=== PATIENT | female | born 1955 | race Hispanic/Latino ===

== ENCOUNTER 2018-08-24 22:22 | Emergency (ER) | payer SELFPAY ==
--- OUTSIDE RECORDS SUMMARY | 2018-08-24 22:25 | XMS REPORT ---
:1955 Author Organization [facility] Address [address] [place] [address] Dr. Elliott [address] [place] [id number] Care Team Providers Name Role Phone Unavailable Unavailable Unavailable Problems This patient has no known problems. Allergies, Adverse Reactions, Alerts This patient has no known allergies or adverse reactions. Medications This patient has no known medications.
[2018-08-25] LABS: Absolute Lymphocytes (CBC) 3.6 K/uL (0.7-4.9); Absolute Monocytes 0.9 K/uL (0.1-1.3); Absolute Neutrophil 4.3 K/uL (1.8-8.0); Basophils % 1.2 % (0-1.3); Eosinophils % 4.6 % (0-4.4); Hematocrit 37.4 % (36.0-45.0); Lymphocytes % 37.9 % (15.3-44.8); MPV 8.3 fL (7.6-11.3); Monocytes % 10.1 % (3.3-12.3); RBC Red Blood Cell Count 4.34 M/uL (3.86-4.86)
[2018-08-25] MEDS ORDERED: NA CHLORIDE 0.9% 1,000 ML ONE
[2018-08-25 00:17] LABS: ALT/SGPT 32 U/L (12-78); AST/SGOT 20 U/L (15-37); Albumin 3.2 g/dL (3.4-5.0); Alkaline Phosphatase 70 U/L (45-117); BUN Blood Urea Nitrogen 18 mg/dL (7-18); Bicarbonate 25 mmol/L (21-32); Bilirubin Direct < 0.1 mg/dL (0-0.2); Bilirubin Total 0.3 mg/dL (0.2-1.0); Glucose Level 96 mg/dL (74-106); Lipase 274 U/L (73-393); Potassium 4.1 mmol/L (3.5-5.1); Protein, Total 7.6 g/dL (6.4-8.2); Sodium Level 140 mmol/L (136-145)
--- NOTE | 2018-08-25 01:44 | EDPHYS ---
Physician Documentation [facility] Name: Ivory Jordan Age: 62 yrs Sex: Female : 1955 Arrival Date: 08/24/2018 Time: 22:31 Bed 7 Private MD: ED Physician Vega Colmenares HPI: 08/25 01:41 This 62 yrs old Female presents to ER via Ambulatory with complaints of kb Abdominal Pain. 01:41 The patient presents with abdominal pain in the left upper quadrant. The patient has kb not experienced similar symptoms in the past. The patient has not recently seen a physician. 01:41 Onset: The symptoms/episode began/occurred 5 day(s) ago. The symptoms do not radiate. kb Associated signs and symptoms: Pertinent positives: constipation. The symptoms are described as constant. Modifying factors: The symptoms are alleviated by nothing, the symptoms are aggravated by nothing. Severity of pain: At its worst the pain was mild moderate in the emergency department the pain is unchanged. Historical: - Allergies: 08/24 23:04 No Known Allergies; tl2 - Home Meds: 23:04 Nexium 40 mg Oral cpDR 1 cap once daily [Active]; tl2 - PMHx: 23:04 Kidney stones; Diverticulitis; tl2 - PSHx: 23:04 Cholecystectomy; tl2 - Immunization history:: Adult Immunizations up to date. - Social history:: Smoking status: Patient/guardian denies using tobacco. - Ebola Screening: : No symptoms or risks identified at this time. ROS: 08/25 01:40 Constitutional: Negative for fever, chills, and weight loss, Neck: Negative for injury, kb pain, and swelling, Cardiovascular: Negative for chest pain, palpitations, and edema, Respiratory: Negative for shortness of breath, cough, wheezing, and pleuritic chest pain, Back: Negative for injury and pain, MS/Extremity: Negative for injury and deformity, Skin: Negative for injury, rash, and discoloration, Neuro: Negative for headache, weakness, numbness, tingling, and seizure. Abdomen/GI: Positive for abdominal pain, nausea and vomiting, constipation. Exam: 01:40 Constitutional: This is a well developed, well nourished patient who is awake, alert, kb and in no acute distress. Head/Face: Normocephalic, atraumatic. Neck: Trachea midline, no thyromegaly or masses palpated, and no cervical lymphadenopathy. Supple, full range of motion without nuchal rigidity, or vertebral point tenderness. No Meningismus. Chest/axilla: Normal chest wall appearance and motion. Nontender with no deformity. No lesions are appreciated. Cardiovascular: Regular rate and rhythm with a normal S1 and S2. No gallops, murmurs, or rubs. Normal PMI, no JVD. No pulse deficits. Respiratory: Lungs have equal breath sounds bilaterally, clear to auscultation and percussion. No rales, rhonchi or wheezes noted. No increased work of breathing, no retractions or nasal flaring. Skin: Warm, dry with normal turgor. Normal color with no rashes, no lesions, and no evidence of cellulitis. MS/ Extremity: Pulses equal, no cyanosis. Neurovascular intact. Full, normal range of motion. Neuro: Awake and alert, GCS 15, oriented to person, place, time, and situation. Cranial nerves II-XII grossly intact. Motor strength 5/5 in all extremities. Sensory grossly intact. Cerebellar exam normal. Normal gait. 01:40 Abdomen/GI: Inspection: abdomen appears normal, Bowel sounds: normal, in all quadrants, Palpation: soft, in all quadrants, moderate abdominal tenderness, in the left upper quadrant. Vital Signs: 08/24 23:04 BP 139 / 92; Pulse 87; Resp 18; Temp 98.1(O); Pulse Ox 95% on R/A; Weight 77.11 kg; tl2 Height 5 ft. 3 in. (160.02 cm); Pain 6/10; 08/25 00:21 BP 116 / 63; Pulse 50; Resp 18; Pulse Ox 98% on R/A; tl2 02:03 BP 140 / 74; Pulse 64; Resp 18; Pulse Ox 98% ; tl2 08/24 23:04 Body Mass Index 30.11 (77.11 kg, 160.02 cm) tl2 MDM: 08/24 23:16 Patient medically screened. kb 08/25 01:40 Data reviewed: vital signs, nurses notes. Data interpreted: Pulse oximetry: on room air kb is 98 %. Interpretation: normal. 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 08/24 23:30 Order name: Basic Metabolic Panel kb 08/24 23:30 Order name: CBC with Diff; Complete Time: 00:03 kb 08/24 23:30 Order name: Hepatic Function; Complete Time: 00:21 kb 08/24 23:30 Order name: Lipase; Complete Time: 00:21 kb 08/24 23:30 Order name: Basic Metabolic Panel; Complete Time: 00:21 EDMS 08/25 02:14 Order name: Urine Dipstick--Ancillary (enter results) mw2 08/24 23:30 Order name: IV Saline Lock; Complete Time: 23:38 kb 08/24 23:30 Order name: Labs collected and sent; Complete Time: 23:38 kb 08/24 23:30 Order name: CT Abd/Pelvis - W/Contrast kb Administered Medications: 08/24 23:49 Drug: NS 0.9% 1000 ml Route: IV; Rate: 1000 ml; Site: right antecubital; tl1 08/25 01:45 Follow up: IV Status: Completed infusion; IV Intake: 1000ml tl1 02:02 Drug: Flagyl 500 mg Route: PO; tl2 02:09 Follow up: Response: No adverse reaction; No change in condition; Medication tl1 administered at discharge. 02:02 Drug: KeFLEX 500 mg Route: PO; tl2 02:09 Follow up: Response: No adverse reaction; No change in condition; Medication tl1 administered at discharge. 02:20 Drug: [place] 5 mg-325 mg 1 tabs Route: PO; tl1 02:20 Follow up: Response: No adverse reaction; No change in condition; Medication tl1 administered at discharge. Disposition: 05:58 Co-signature as Attending Physician, Vega Colmenares MD. Disposition: 08/25/18 01:42 Discharged to Home. Impression: Diverticulitis of intestine, part unspecified, without perforation or abscess without bleeding. - Condition is Stable. - Discharge Instructions: Diverticulitis, [id number]. - Prescriptions for Flagyl 500 mg Oral Tablet - take 1 tablet by ORAL route every 8 hours for 10 days; 30 tablet. Keflex 500 mg Oral Capsule - take 1 capsule by ORAL route every 8 hours for 10 days; 30 capsule. - Medication Reconciliation Form, Thank You Letter, Antibiotic Education, Prescription Opioid Use form. - Follow up: Emergency Department; When: As needed; Reason: Worsening of condition. Follow up: Private Physician; When: 2 - 3 days; Reason: Recheck today's complaints, Continuance of care, Re-evaluation by your physician. Signatures: Dispatcher [employer] EDOR Marisol Andersen, RIVER-C WINDOWS SYSTEMS ENGINEER-Janice Hanley, RN RN tl1 Anna De La Cruz RN RN tl2 Vega Colmenares MD MD gs Corrections: (The following items were deleted from the chart) 02:20 01:42 08/25/2018 01:42 Discharged to Home. Impression: Diverticulitis of intestine, tl1 part unspecified, without perforation or abscess without bleeding. Condition is Stable. Forms are Medication Reconciliation Form, Thank You Letter, Antibiotic Education, Prescription Opioid Use. Follow up: Emergency Department; When: As needed; Reason: Worsening of condition. Follow up: Private Physician; When: 2 - 3 days; Reason: Recheck today's complaints, Continuance of care, Re-evaluation by your physician. kb
--- NOTE | 2018-08-25 01:44 | ER ---
Nurse's Notes [facility] Name: Ivory Jordan Age: 62 yrs Sex: Female : 1955 Arrival Date: 08/24/2018 Time: 22:31 Bed 7 Private MD: Diagnosis: Diverticulitis of intestine, part unspecified, without perforation or abscess without bleeding Presentation: 08/24 23:02 Presenting complaint: Patient states: left side abdominal pain x 5 days, feels bloated tl2 and has been constipated for 2 days. Denies vomiting. Reports being diagnosed with diverticulitis in 2013 and this pain feels similar. Transition of care: patient was not received from another setting of care. Onset of symptoms was August 19, 2018. Risk Assessment: Do you want to hurt yourself or someone else? Patient reports no desire to harm self or others. Initial Sepsis Screen: Does the patient meet any 2 criteria? No. Patient's initial sepsis screen is negative. Does the patient have a suspected source of infection? No. Patient's initial sepsis screen is negative. Care prior to arrival: None. 23:02 Method Of Arrival: Ambulatory tl2 23:02 Acuity: PILAR 3 tl2 Triage Assessment: 23:04 General: Appears in no apparent distress. uncomfortable, Behavior is calm, cooperative, tl2 appropriate for age. Pain: Complains of pain in left upper quadrant and left lower quadrant Quality of pain is described as pressure. Neuro: Level of Consciousness is awake, alert, obeys commands, Oriented to person, place, time, situation. Cardiovascular: Denies chest pain. Respiratory: Airway is patent Respiratory effort is even, unlabored, Respiratory pattern is regular, symmetrical. GI: Abdomen is round distended, Abd is soft Abdomen is tender to palpation in left upper quadrant and left lower quadrant Reports lower abdominal pain, upper abdominal pain, bloating, constipation. : No signs and/or symptoms were reported regarding the genitourinary system. Derm: Skin is pink, warm \T\ dry. Historical: - Allergies: 23:04 No Known Allergies; tl2 - Home Meds: 23:04 Nexium 40 mg Oral cpDR 1 cap once daily [Active]; tl2 - PMHx: 23:04 Kidney stones; Diverticulitis; tl2 - PSHx: 23:04 Cholecystectomy; tl2 - Immunization history:: Adult Immunizations up to date. - Social history:: Smoking status: Patient/guardian denies using tobacco. - Ebola Screening: : No symptoms or risks identified at this time. Screenin:07 Abuse screen: Denies threats or abuse. Nutritional screening: No deficits noted. tl2 Tuberculosis screening: No symptoms or risk factors identified. Fall Risk None identified. Assessment: 23:07 General: see triage assessment. tl2 Vital Signs: 23:04 BP 139 / 92; Pulse 87; Resp 18; Temp 98.1(O); Pulse Ox 95% on R/A; Weight 77.11 kg; tl2 Height 5 ft. 3 in. (160.02 cm); Pain 6/10; 08/25 00:21 BP 116 / 63; Pulse 50; Resp 18; Pulse Ox 98% on R/A; tl2 02:03 BP 140 / 74; Pulse 64; Resp 18; Pulse Ox 98% ; tl2 08/24 23:04 Body Mass Index 30.11 (77.11 kg, 160.02 cm) tl2 ED Course: 08/24 22:31 Patient arrived in ED. es 23:03 Triage completed. tl2 23:04 Arm band placed on right wrist. tl2 23:07 Patient has correct armband on for positive identification. Placed in gown. Bed in low tl2 position. Call light in reach. Side rails up X 1. 23:16 Marisol Andersen [facility]-C [facility]. kb 23:16 Vega Colmenares MD is Attending Physician. kb 23:35 Inserted saline lock: 22 gauge in right antecubital area, using aseptic technique. tl2 Blood collected. 23:38 Anna De La Cruz, DUSTY is Primary Nurse. tl2 08/25 01:00 CT Abd/Pelvis - W/Contrast In Process Unspecified. EDMS 01:04 CT completed. Patient tolerated procedure well. Patient moved to CT via stretcher. Patient moved back from CT. 02:08 No provider procedures requiring assistance completed. IV discontinued, intact, tl1 bleeding controlled, No redness/swelling at site. Pressure dressing applied. Administered Medications: 08/24 23:49 Drug: NS 0.9% 1000 ml Route: IV; Rate: 1000 ml; Site: right antecubital; tl1 08/25 01:45 Follow up: IV Status: Completed infusion; IV Intake: 1000ml tl1 02:02 Drug: Flagyl 500 mg Route: PO; tl2 02:09 Follow up: Response: No adverse reaction; No change in condition; Medication tl1 administered at discharge. 02:02 Drug: KeFLEX 500 mg Route: PO; tl2 02:09 Follow up: Response: No adverse reaction; No change in condition; Medication tl1 administered at discharge. 02:20 Drug: [place] 5 mg-325 mg 1 tabs Route: PO; tl1 02:20 Follow up: Response: No adverse reaction; No change in condition; Medication tl1 administered at discharge. Intake: 01:45 IV: 1000ml; Total: 1000ml. tl1 Outcome: 01:42 Discharge ordered by . yolis 02:20 Patient left the ED. tl1 Signatures: Dispatcher [employer] Marisol Painter, CUTTER HOT KNIFE-C CUTTER HOT KNIFE-Gloria Lance Ervin eh Lasagna, Tonya, RN RN tl1 Anna De La Cruz RN RN tl2
[2018-08-25] MEDS ORDERED: metroNIDAZOLE 500 MG TABLET ONE (02:14)
[2018-08-25] MEDS ORDERED: CEPHALEXIN 250 MG CAP ONE (02:14)
[2018-08-25 02:21] LABS: Urine Blood TRACE (NEG); Urine Glucose NEGATIVE (NEG); Urine Protein NEGATIVE (NEG)
[2018-08-25] MEDS ORDERED: HYDROCODONE/APAP 5/325 MG TAB ONE (02:30)
[2018-08-25 02:37] VITALS: TEMP 98.1
[2018-08-25 02:39] VITALS: O2SAT 98
[2018-08-25 02:41] VITALS: BP 140/74
[2018-08-25] MEDS ORDERED: HYDROMORPHONE HCL 0.5 MG/0.5 ML INJ ONE (03:38)
--- NOTE | 2018-08-25 12:29 | RAD REPORT ---
EXAM DESCRIPTION: CT - Abdomen Pelvis W Contrast - 08/25/2018 3:36 am CLINICAL HISTORY: The patient is 63 years old and is Female; iv contrast only;Abd pain TECHNIQUE: Axial computed tomography images of the abdomen and pelvis with intravenous contrast. S agittal and coronal reformatted images were created and reviewed. This CT exam was performed using one or more of the following dose reduction techniques: automated exposure control, adjustment of t he mA and/or kV according to patient size, and/or use of iterative reconstruction technique. COMPARISON: No relevant prior studies available. FINDINGS: LUNG BASES: Unremarkable. No mass. No consolidation. ABDOMEN: LIVER: Unremarkable. No mass. GALLBLADDER AND BILE DUCTS: . Surgical clips are present in the right upper quadrant, consistent with previous cholecystectomy. PANCREAS: No ductal dilation. No mass. SPLEEN: Unremarkable. ADRENALS: Unremarkable. No mass. KIDNEYS AND URETERS: Lobular contour to both kidneys is noted. The left kidney is slightly atrop hic. Several left intrarenal calcifications are present. [id number] right hydroureteronephrosis and mild left hydroureteronephrosis is present. No obstructing calculus is seen. STOMACH AND BOWEL: A moderate amount of stool is present throughout the colon. Several scattered colonic diverticula are present. Mild colonic wall thickening with surrounding inflammatory strandin g involving the distal descending colon is noted. The stomach is not well distended. The small bowel is normal in caliber. There is no bowel obstruction. PELVIS: APPENDIX: The appendix is normal in caliber without surrounding inflammation. BLADDER: Unremarkable. No mass. REPRODUCTIVE: Unremarkable as visualized. ABDOMEN and PELVIS: INTRAPERITONEAL SPACE: Unremarkable. No free air. No significant fluid collection. BONES/JOINTS: No acute fracture. SOFT TISSUES: The soft tissues are normal. VASCULATURE: Unremarkable. No abdominal aortic aneurysm. LYMPH NODES: Unremarkable. No enlarged lymph nodes. IMPRESSION: 1. Findings suggestive of mild acute distal descending colon diverticulitis. 2. Left nephrolithiasis. 3. Mild to moderate right hydroureteronephrosis and mild left hydroureteronephrosis without evidenc e of obstructing calculus. Electronically signed by: Makeda Suh MD 08/25/2018 1:04 AM CDT Due to temporary technical issues with the PACS/Fluency reporting system, reports are being signed by the in house radiologist as a courtesy to ensure prompt reporting. The interpreting radiologist is f ully responsible for the content of the report.
== END 2018-08-25 02:20 | disposition home or self-care (01) ==
LOC: ER 22:22
DX: K57.32 Diverticulitis of large intestine without perforation or abscess without bleeding (principal)
CPT/HCPCS: 36415; 74177; 80048; 80076; 81003; 83690; 85025; 96360; 96361; 99284; J1170; Q9967

== ENCOUNTER 2023-08-12 19:39 | Inpatient (IN) | payer OTHER ==
--- OUTSIDE RECORDS SUMMARY | 2023-08-12 19:44 | XMS REPORT | Continuity of Care Document ---
Author Name Unknown Address [address] [facility] [address]. [phone] [facility] thconnect Address [address] [facility] 1 [id number] Care Team Providers Care Eggs Inspector Name Role Phone ANKUR AGUILAR Primary Care Physician LENNOX [place] Attending Clinician Lori mathur RADIOLOGY Attending Clinician Unavailable EMILY VILLA Attending Clinician Unavailable Emily Villa NP Attending Clinician [phone] Radiology Attending Clinician Unavailable Lennox Aguayo MD Attending Clinician +- [phone] Doctor Unassigned, [place] Attending Clinician U negraailSERENE Joya Attending Clinician Unavailable Serene Louis S Attending Clinician [phone] Pob, 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 Attending Clinician UnavailTurner Jimenez MD Attending Clinician [phone] LENNOX AGUAYO Admitting Clinician ANKUR Quiros Admitting Clinician Lennox Santamaria MD Admitting Clinician + [phone] SERENE VALDEZ Admitting Clinician Unavailable Payers Payer Name Policy Type Policy Number Effective Date Expirati on Date Source [facility] [id number] 2019 00:00:00 [employer]VANTAGE [id number] 2021 00:00:00 Problems Condition Name Condition Details Condition Category Status Onset Date Resolution Date Last Treatment Date Treating Clinician Comments Source Cystitis Cystitis Disease Active 12-13 00:00: 00 [facility] Osteoporos is without current pathologic al fracture, unspecifie d osteoporos is type Osteoporos is without current pathologic al fracture, unspecifie d osteoporos is type Disease Active 08-13 00:00: 00 [facility] Tobacco abuse Tobacco abuse Disease Active 01-01 00:00: 00 [facility] Acute pyelonephr itis Acute pyelonephr itis Disease Active 2015-04 00:00: 00 [facility] Calculus of kidney Calculus of kidney Disease Active 11-13 00:00: 00 [facility] Hydronephr osis Hydronephr osis Disease Active 07-21 00:00: 00 [facility] Urinary tract infection Urinary tract infection Disease Active 07-21 00:00: 00 [facility] Allergies, Adverse Reactions, Alerts Allergy Name Allergy Type Status Severity Reaction(s) Onset Date Inactive Date Treating Clinician Comments Source Codeine Propensi ty to adverse reaction s Active Nausea and/or Vomiting 2015-04 00:00: 00 [facility] CODEINE DRUG INGREDI Active N/V 2015-04 00:00: 00 [facility] Social History Social Habit Start Date Stop Date Quantity Comments Source [facility] SARS-CoV-2 (event) Not sure [facility] Alcohol intake 2023-07-08 00:00:00 2023-07-08 00:00:00 0 /d [facility] History of Social function 2021-07-31 00:00:00 2021-07-31 00:00:00 [facility] Tobacco use and exposure 2021-01-06 00:00:00 2021-01-06 00:00:00 Smokeless tobacco non-user [facility] Tobacco Comment 2017-12-13 00:00:00 2017-12-13 00:00:[address] [facility] History of tobacco use 2014-09-12 00:00:[address] [facility] Sex Ass[birth year] At 1955 00:00:00 1955 00:00:00 [facility] Smoking Status Start Date Stop Date Source Never smoked tobacco [facility] Former smoker 2017-12-13 00:00:00 2017-12-13 00:00:00 [facility] Medications Ordered Medication Name Filled Medication Name Start Date Stop Date Current Medication? Ordering Clinician Indication Dosage Frequency Signature (SIG) Comments Components Source meloxicam 15 mg tablet 07-07 17:03: 10 Yes 15mg Take 1 tablet by mouth daily. [facility] hydroxychlo roquine 100 mg Tab 07-07 17:03: 10 Yes 100mg Take 100 mg by mouth daily. [facility] magnesium hydroxide (MAGNESIA ORAL) 07-07 16:30: 32 07-07 00:00 :00 No Take by mouth. [facility] diclofenac 50 mg EC tablet 07-07 16:30: 08 07-07 00:00 :00 No 50mg Take 50 mg by mouth as needed for Pain or Inflammati on. [facility] iopamidol (ISOVUE 370-500 mL) injection 54 mL 12-29 20:15: 00 12-29 19:21 :00 No [id number] 54mL 54 mL, Intravenou s, ONCE, 1 dose, On 12/29/21 at 1515, Routine [facility] lactated ringers IV infusion 1,000 mL 07-31 20:00: 00 07-31 22:18 :48 No 1000mL at 75 mL/hr, 1,000 mL, IV Infusion, CONTINUOUS , Starting on [place] 07/31/21 at 1500, Until [place] 07/31/21 at 1718, Routine, PACU [facility] FENTanyl PF (SUBLIMAZE (PF)) injection 25 mcg 07-31 19:55: 13 07-31 22:18 :48 No 25ug 25 mcg, Slow IV Push, Q5MIN PRN, 4 doses, Starting on [place] 07/31/21 at 1455, Until [place] 07/31/21 at 1718, Routine, Pain (scale 7-10), PACU [facility] ondansetron (ZOFRAN (PF)) injection 4 mg 07-31 19:55: 13 07-31 22:18 :48 No 4mg 4 mg, Slow IV Push, PRN, 1 dose, Starting on [place] 07/31/21 at 1455, Until [place] 07/31/21 at 1718, Routine, Nausea and Vomiting (N/V), PACU [facility] gentamicin injection 07-31 19:43: 00 07-31 22:18 :48 No PRN, Starting on [place] 07/31/21 at 1443, Until [place] 07/31/21 at 1718, VY, Intra-op [facility] dexamethaso ne (DECADRON PHOSPHATE) injection 07-31 19:43: 00 07-31 22:18 :48 No PRN, Starting on [place] 07/31/21 at 1443, Until [place] 07/31/21 at 1718, Routine, Intra-op [facility] ceFAZolin (ANCEF) injection 07-31 19:42: 00 07-31 22:18 :48 No PRN, Starting on [place] 07/31/21 at 1442, Until [place] 07/31/21 at 1718, VY, Intra-op [facility] water for irrigation irrigation solution 07-31 19:30: 00 07-31 22:18 :48 No PRN, Starting on [place] 07/31/21 at 1430, Until [place] 07/31/21 at 1718, Routine, Intra-op [facility] tetracaine (PONTOCAINE ) 0.5 % ophthalmic drops 07-31 19:28: 00 07-31 22:18 :48 No PRN, Starting on [place] 07/31/21 at 1428, Until [place] 07/31/21 at 1718, Routine, Intra-op [facility] eye block syringe 11 mL 07-31 19:27: 00 07-31 22:18 :48 No PRN, Starting on [place] 07/31/21 at 1427, Until [place] 07/31/21 at 1718, Intra-op [facility] NaCl 0.9% (NS) injection 07-31 19:26: 00 07-31 22:18 :48 No PRN, Starting on [place] 07/31/21 at 1426, Until [place] 07/31/21 at 1718, Routine, Intra-op [facility] DUOVISC (DUOVISC VISCO ELASTIC) 3 %-4 %(0.5 mL) 1 % (0.55 mL) intraocular injection 07-31 19:25: 00 07-31 22:18 :48 No PRN, Starting on Vashti 07/31/21 at 1425, Until [place] 07/31/21 at 1718, Routine, Intra-op [facility] EPINEPHrine (PF) 1:1,000 (1 mg/mL) (ADRENALIN (PF)) injection 07-31 19:25: 00 07-31 22:18 :48 No PRN, Starting on [place] 07/31/21 at 1425, Until [place] 07/31/21 at 1718, Routine, Intra-op [facility] balanced salt soln no.2 irrig. (BSS) ophthalmic solution 07-31 19:25: 00 07-31 22:18 :48 No PRN, Starting on [place] 07/31/21 at 1425, Until [place] 07/31/21 at 1718, Routine, Intra-op [facility] cyclopent 1%-tropic 1%-phenyl 2.5%-ketor 0.5% (MYDRIATIC #5) ophthalmic solution syringe 0.5 mL 07-31 18:00: 00 07-31 17:52 :00 No .5mL 0.5 mL, Left Eye, ONCE, 1 dose, On Vas[place] 07/31/21 at 1300, Routine, DSU Pre-op [facility] lactated ringers IV infusion 1,000 mL 07-31 18:00: 00 07-31 18:20 :00 No 1000mL at 42 mL/hr, 1,000 mL, IV Infusion, ONCE, 1 dose, On [place] 07/31/21 at 1300, Routine, DSU Pre-op [facility] diclofenac 50 mg EC tablet 07-31 15:18: 45 Yes 50mg Take 50 mg by mouth as needed for Pain or Inflammati on. [facility] magnesium hydroxide (MAGNESIA ORAL) 07-31 15:18: 45 Yes Take by mouth. [facility] amoxicillin -clavulanat e (AUGMENTIN) 875-125 mg per tablet 1 tablet 07-28 00:45: 00 07-27 23:38 :00 No 1{tbl} 1 tablet, Oral, ONCE, 1 dose, On [place] 07/27/21 at 1945, Routine
Reason for Anti-Infec tive: Documented Infection< br>Documen jasmin Infection Site: Abdominal< br>Duratio n of Therapy: Other (see Comments) [facility] amoxicillin -clavulanat e 875-125 mg per tablet 07-27 00:00: 00 07-07 00:00 :00 No [id number] 1{tbl} Take 1 tablet by mouth every 12 (twelve) hours. [facility] neomycin-po lymyxin-dex amethasone (MAXITROL) 3.5 mg/g-10,000 unit/g-0.1 % ophthalmic ointment 07-10 17:13: 00 07-10 20:00 :56 No PRN, Starting on Vas[place] 07/10/21 at 1213, Until [place] 07/10/21 at 1500, Routine, Intra-op [facility] NaCl 0.9% (NS) injection 07-10 17:12: 00 07-10 20:00 :56 No PRN, Starting on [place] 07/10/21 at 1212, Until [place] 07/10/21 at 1500, Routine, Intra-op [facility] gentamicin injection 07-10 17:12: 00 07-10 20:00 :56 No PRN, Starting on [place] 07/10/21 at 1212, Until [place] 07/10/21 at 1500, VY, Intra-op [facility] dexamethaso ne (DECADRON PHOSPHATE) injection 07-10 17:12: 00 07-10 20:00 :56 No PRN, Starting on [place] 07/10/21 at 1212, Until [place] 07/10/21 at 1500, Routine, Intra-op [facility] ceFAZolin (ANCEF) injection 07-10 17:12: 00 07-10 20:00 :56 No PRN, Starting on [place] 07/10/21 at 1212, Until [place] 07/10/21 at 1500, VY, Intra-op [facility] EPINEPHrine (PF) 1:1,000 (1 mg/mL) (ADRENALIN (PF)) injection 07-10 17:00: 00 07-10 20:00 :56 No PRN, Starting on [place] 07/10/21 at 1200, Until [place] 07/10/21 at 1500, Routine, Intra-op [facility] DUOVISC (DUOVISC VISCO ELASTIC) 3 %-4 %(0.5 mL) 1 % (0.55 mL) intraocular injection 07-10 17:00: 00 07-10 20:00 :56 No PRN, Starting on [place] 07/10/21 at 1200, Until [place] 3 at 1500, Routine, Intra-op [facility] balanced salt soln no.2 irrig. (BSS) ophthalmic solution 07-10 17:00: 00 07-10 20:00 :56 No PRN, Starting on [place] 07/10/21 at 1200, Until [place] 07/10/21 at 1500, Routine, Intra-op [facility] water for irrigation irrigation solution 07-10 16:58: 00 07-10 20:00 :56 No PRN, Starting on [place] 07/10/21 at 1158, Until [place] 07/10/21 at 1500, Routine, Intra-op [facility] tetracaine (PONTOCAINE ) 0.5 % ophthalmic drops 07-10 16:56: 00 07-10 20:00 :56 No PRN, Starting on [place] 07/10/21 at 1156, Until [place] 07/10/21 at 1500, Routine, Intra-op [facility] eye block syringe 11 mL 07-10 16:55: 00 07-10 20:00 :56 No PRN, Starting on [place] 07/10/21 at 1155, Until [place] 07/10/21 at 1500, Intra-op [facility] cyclopent 1%-tropic 1%-phenyl 2.5%-ketor 0.5% (MYDRIATIC #5) ophthalmic solution syringe 0.5 mL 07-10 15:15: 00 07-10 15:16 :00 No .5mL 0.5 mL, Right Eye, ONCE, 1 dose, On [place] 07/10/21 at 1015, Routine, DSU Pre-op [facility] lactated ringers IV infusion 1,000 mL 07-10 15:15: 00 07-10 15:13 :00 No 1000mL at 42 mL/hr, 1,000 mL, IV Infusion, ONCE, 1 dose, On [place] 07/10/21 at 1015, Routine, DSU Pre-op [facility] diclofenac 50 mg EC tablet 07-10 13:00: 55 Yes 50mg Take 50 mg by mouth as needed for Pain or Inflammati on. [facility] magnesium hydroxide (MAGNESIA ORAL) 07-10 13:00: 55 Yes Take by mouth. [facility] diclofenac 50 mg EC tablet 01-06 13:53: 47 Yes 50mg Take 50 mg by mouth as needed for Pain or Inflammati on. [facility] magnesium hydroxide (MAGNESIA ORAL) 01-06 13:53: 47 Yes Take by mouth. [facility] tetanus-dip htheria toxoids (TENIVAC) 5-2 Lf unit/0.5 mL injection 0.5 mL 2019-04 13:45: 00 02-17 12:47 :00 No .5mL 0.5 mL, Intramuscu lar, ONCE, 1 dose, 02/18/20 at 0745, Routine [facility] ketorolac (TORADOL) injection 30 mg 2019-04 13:45: 00 02-17 12:47 :00 No 30mg 30 mg, Intramuscu lar, ONCE, 1 dose, 02/18/20 at 0745, Routine
[employer] member approving Restricted medication : TURNER TEMPLE [facility] traMADoL (ULTRAM) 50 mg tablet 2019-04 00:00: 00 07-07 00:00 :00 No [id number] 50mg Take 1 tablet by mouth every 6 (six) hours as needed for Pain (scale 7-10). Indication s: acute pain [facility] ondansetron (ZOFRAN) 4 mg tablet 2019-04 00:00: 00 07-07 00:00 :00 No [id number] 4mg Take 1 tablet by mouth every 8 (eight) hours as needed for Nausea and Vomiting (N/V). [facility] ciprofloxac in HCl 500 mg tablet 2018-04 00:00: 00 07-07 00:00 :00 No [id number] 500mg Take 1 tablet by mouth 2 (two) times daily. [facility] proMETHazin e 25 mg tablet 2018-04 00:00: 00 07-07 00:00 :00 No [id number] 25mg Take 1 tablet by mouth every 6 (six) hours as needed for Nausea and Vomiting (N/V). [facility] traMADol 50 mg tablet 2018-04 00:00: 00 07-07 00:00 :00 No [id number] 50mg Take 1 tablet by mouth every 6 (six) hours as needed for Pain (scale 4-6). [facility] benzonatate 100 mg capsule 4-14 00:00: 00 07-07 00:00 :00 No [id number] 100mg Take 1 capsule by mouth 3 (three) times daily as needed for Cough. [facility] omeprazole 40 mg capsule 3-11 00:00: 00 07-07 00:00 :00 No [id number] 40mg Take 1 capsule by mouth 2 (two) times daily. [facility] diclofenac 50 mg EC tablet 2017-04 19:23: 45 Yes 50mg Take 50 mg by mouth as needed for Pain or Inflammati on. [facility] magnesium hydroxide (MAGNESIA ORAL) 2017-04 19:23: 45 Yes Take by mouth. [facility] diclofenac 50 mg EC tablet 2017-04 14:23: 45 Yes 50mg Take 50 mg by mouth as needed for Pain or Inflammati on. [facility] magnesium hydroxide (MAGNESIA ORAL) 2017-04 0 14:23: 45 Yes Take by mouth. [facility] Immunizations Ordered Immunization Name Filled Immunization Name Date Status Comments Source SARS-COV-2 COVID-19 PFIZER VACCINE 2021-02-13 00:00:[address] [facility] SARS-COV-2 COVID-19 PFIZER VACCINE 2021-02-13 00:00:[address] [facility] SARS-COV-2 COVID-19 PFIZER VACCINE 2021-02-13 00:00:[address] [facility] SARS-COV-2 COVID-19 PFIZER VACCINE 2021-02-13 00:00:[address] [facility] SARS-COV-2 COVID-19 PFIZER VACCINE 2021-02-13 00:00:[address] [facility] SARS-COV-2 COVID-19 PFIZER VACCINE 2021-02-13 00:00:[address] [facility] SARS-COV-2 COVID-19 PFIZER VACCINE 2021-02-13 00:00:[address] [facility] SARS-COV-2 COVID-19 PFIZER VACCINE 2021-02-13 00:00:[address] [facility] SARS-COV-2 COVID-19 PFIZER VACCINE 2021-02-13 00:00:[address] [facility] SARS-COV-2 COVID-19 PFIZER VACCINE 2020-05-28 00:00:[address] [facility] SARS-COV-2 COVID-19 PFIZER VACCINE 2020-05-28 00:00:[address] [facility] SARS-COV-2 COVID-19 PFIZER VACCINE 2020-05-28 00:00:[address] [facility] SARS-COV-2 COVID-19 PFIZER VACCINE 2020-05-28 00:00:[address] [facility] SARS-COV-2 COVID-19 PFIZER VACCINE 2020-05-28 00:00:[address] [facility] SARS-COV-2 COVID-19 PFIZER VACCINE 2020-05-28 00:00:[address] [facility] SARS-COV-2 COVID-19 PFIZER VACCINE 2020-05-28 00:00:[address] [facility] SARS-COV-2 COVID-19 PFIZER VACCINE 2020-05-28 00:00:[address] [facility] SARS-COV-2 COVID-19 PFIZER VACCINE 2020-05-28 00:00:[address] [facility] SARS-COV-2 COVID-19 PFIZER VACCINE 2020-05-07 00:00:[address] [facility] SARS-COV-2 COVID-19 PFIZER VACCINE 2020-05-07 00:00:[address] [facility] SARS-COV-2 COVID-19 PFIZER VACCINE 2020-05-07 00:00:[address] [facility] SARS-COV-2 COVID-19 PFIZER VACCINE 2020-05-07 00:00:[address] [facility] SARS-COV-2 COVID-19 PFIZER VACCINE 2020-05-07 00:00:[address] [facility] SARS-COV-2 COVID-19 PFIZER VACCINE 2020-05-07 00:00:[address] [facility] SARS-COV-2 COVID-19 PFIZER VACCINE 2020-05-07 00:00:[address] [facility] SARS-COV-2 COVID-19 PFIZER VACCINE 2020-05-07 00:00:[address] [facility] SARS-COV-2 COVID-19 PFIZER VACCINE 2020-05-07 00:00:[address] [facility] Td 2020-02-18 00:00:[address] [facility] Td 2020-02-18 00:00:[address] [facility] Td 2020-02-18 00:00:[address] [facility] Td 2020-02-18 00:00:[address] [facility] Td 2020-02-18 00:00:[address] [facility] Td 2020-02-18 00:00:[address] [facility] Td 2020-02-18 00:00:[address] [facility] Td 2020-02-18 00:00:[address] [facility] Td 2020-02-18 00:00:[address] [facility] Td 2020-02-18 00:00:[address] [facility] Td 2020-02-18 00:00:[address] [facility] Td 2020-02-18 00:00:[address] [facility] Td 2020-02-18 00:00:[address] [facility] Td 2020-02-18 00:00:[address] [facility] Td 2020-02-18 00:00:[address] [facility] TD, NOS Unknown Completed [facility] SARS-COV-2 COVID-19 PFIZER VACCINE Unknown Completed [facility] SARS-COV-2 COVID-19 PFIZER VACCINE Unknown Completed [facility] SARS-COV-2 COVID-19 PFIZER VACCINE Unknown Completed [facility] Vital Signs Vital Name Observation Time Observation Value Comments S ource Systolic blood pressure 2023-07-08 21:48:00 139 mm[Hg] [place] [facility] Diastolic blood pressure 2023-07-08 21:48:00 66 mm[Hg] [place] [facility] Heart rate 2023-07-08 21:48:00 66 /min [facility] Respiratory rate 2023-07-08 21:48:00 16 /min [facility] Oxygen saturation in Arterial blood by Pulse oximetry 2023-07-08 21:48:00 100 /min [facility] Body temperature 2023-07-08 20:49:[address] [facility] Body height 2023-07-08 20:49:00 165.1 cm [facility] Body weight 2023-07-08 20:49:00 68.04 kg [facility] BMI 2023-07-08 20:49:00 24.96 kg/m2 [facility] Systolic blood pressure 2021-07-31 20:00:00 139 mm[Hg] [facility] Diastolic blood pressure 2021-07-31 20:00:00 54 mm[Hg] [facility] Heart rate 2021-07-31 20:00:00 53 /min [facility] Respiratory rate 2021-07-31 20:00:00 18 /min [facility] Oxygen saturation in Arterial blood by Pulse oximetry 2021-07-31 20:00:00 98 /min [facility] Body temperature 2021-07-31 19:49:[address] [facility] Body height 2021-07-28 13:08:00 167.6 cm [facility] Body weight 2021-07-28 13:08:00 79.4 kg [facility] BMI 2021-07-28 13:08:00 28.27 kg/m2 [facility] Systolic blood pressure 2021-07-31 18:07:00 160 mm[Hg] [facility] Diastolic blood pressure 2021-07-31 18:07:00 71 mm[Hg] [facility] Heart rate 2021-07-31 18:07:00 51 /min [facility] Body temperature 2021-07-31 18:07:[address] [facility] Respiratory rate 2021-07-31 18:07:00 17 /min [facility] Oxygen saturation in Arterial blood by Pulse oximetry 2021-07-31 18:07:00 100 /min [facility] Body height 2021-07-28 13:08:00 167.6 cm [facility] Body weight 2021-07-28 13:08:00 79.4 kg [facility] BMI 2021-07-28 13:08:00 28.27 kg/m2 [facility] Systolic blood pressure 2021-07-27 20:20:00 127 mm[Hg] [facility] Diastolic blood pressure 2021-07-27 20:20:00 63 mm[Hg] [facility] Heart rate 2021-07-27 20:20:00 68 /min [facility] Body temperature 2021-07-27 20:20:[address] [facility] Respiratory rate 2021-07-27 20:20:00 18 /min [facility] Body weight 2021-07-27 20:20:00 79.379 kg [facility] BMI 2021-07-27 20:20:00 28.25 kg/m2 [facility] Oxygen saturation in Arterial blood by Pulse oximetry 2021-07-27 20:20:00 100 /min [facility] Heart rate 2021-07-10 17:31:00 58 /min [facility] Respiratory rate 2021-07-10 17:31:00 12 /min [facility] Oxygen saturation in Arterial blood by Pulse oximetry 2021-07-10 17:31:00 100 /min [facility] Systolic blood pressure 2021-07-10 17:30:00 155 mm[Hg] [facility] Diastolic blood pressure 2021-07-10 17:30:00 68 mm[Hg] [facility] Body temperature 2021-07-10 17:20:[address] [facility] Body height 2021-07-10 14:58:00 167.6 cm [facility] Body weight 2021-07-10 14:58:00 74.39 kg [facility] BMI 2021-07-10 14:58:00 26.47 kg/m2 [facility] Systolic blood pressure 2021-07-10 14:58:00 145 mm[Hg] [facility] Diastolic blood pressure 2021-07-10 14:58:00 68 mm[Hg] [facility] Heart rate 2021-07-10 14:58:00 66 /min [facility] Body temperature 2021-07-10 14:58:[address] [facility] Respiratory rate 2021-07-10 14:58:00 17 /min [facility] Body height 2021-07-10 14:58:00 167.6 cm [facility] Body weight 2021-07-10 14:58:00 74.39 kg [facility] BMI 2021-07-10 14:58:00 26.47 kg/m2 [facility] Oxygen saturation in Arterial blood by Pulse oximetry 2021-07-10 14:58:00 100 /min [facility] Systolic blood pressure 2020-02-18 13:00:00 145 mm[Hg] [facility] Diastolic blood pressure 2020-02-18 13:00:00 72 mm[Hg] [facility] Heart rate 2020-02-18 13:00:00 59 /min [facility] Respiratory rate 2020-02-18 13:00:00 20 /min [facility] Oxygen saturation in Arterial blood by Pulse oximetry 2020-02-18 13:00:00 99 /min [facility] Body temperature 2020-02-18 12:32:[address] [facility] Body height 2020-02-18 12:32:00 160 cm [facility] Body weight 2020-02-18 12:32:00 78.926 kg [facility] BMI 2020-02-18 12:32:00 30.82 kg/m2 [facility] Procedures Procedure Date / Time Performed Performing Clinician Source CBC WITH DIFF 2023-07-08 21:21:[address] [facility] NOTICE OF PRIVACY PRACTICES 2023-07-08 20:38:29 Doctor Unassigned, [place] [facility] CONSENT/REFUSAL FOR DIAGNOSI S AND TREATMENT 2023-07-08 20:38:06 Doctor Unassigned, [place] [facility] CT ABDOMEN PELVIS W CONTRAST 2021-12-29 19:18:55 Requisition, Paper [facility] PHACOEMULSIFICATION OF CATARACT WITH INTRAOCULAR LENS IMPLANT 2021-07-31 19:17:00 Lennox Aguayo [facility] SURGERY [facility] 2021-07-31 05:01:00 Doctor Unassigned, [place] [facility] ASSIGNMENT OF BENEFITS 2021-07-29 20:16:58 Doctor Unassigned, [place] [facility] LIPASE 2021-07-27 21:03:[address] [facility] COMP. METABOLIC PANEL ([id number]) 2021-07-27 21:03:[address] [facility] CBC WITH DIFF 2021-07-27 21:03:[address] [facility] CT ABDOMEN PELVIS WO CONTRAST 2021-07-27 20:52:[address] [facility] URINALYSIS 2021-07-27 20:29:[address] [facility] NOTICE OF PRIVACY PRACTICES 2021-07-27 20:14:53 Doctor Unassigned, [place] [facility] CONSENT/REFUSAL FOR DIAGNOSI S AND TREATMENT 2021-07-27 20:14:33 Doctor Unassigned, [facility] PHACOEMULSIFICATION OF CATARACT WITH INTRAOCULAR LENS IMPLANT 2021-07-10 16:46:00 Lennox Aguayo [facility] 2021-07-10 05:01:00 Doctor Unassigned, [facility] NOTICE OF BILLING PRACTICES FOR MEDICARE PATIENTS 2021-06-19 22:16:45 Doctor Unassigned, [facility] NOTICE OF BILLING PRACTICES FOR MEDICARE PATIENTS 2021-06-19 22:16:45 Doctor Unassigned, [facility] CONSENT/REFUSAL FOR DIAGNOSI S AND TREATMENT 2021-06-19 22:16:25 Doctor Unassigned, [facility] CONSENT/REFUSAL FOR DIAGNOSI S AND TREATMENT 2021-06-19 22:16:25 Doctor Unassigned, [facility] ASSIGNMENT OF BENEFITS 2021-06-19 22:16:04 Doctor Unassigned, [facility] ASSIGNMENT OF BENEFITS 2021-06-19 22:16:04 Doctor Unassigned, [facility] PHYSICIAN ORDERS 2021-06-19 06:01:00 Doctor Unassigned, [facility] PHYSICIAN ORDERS 2021-06-19 06:01:00 Doctor Unassigned, [facility] ASSIGNMENT OF BENEFITS 2021-01-02 20:22:48 Doctor Unassigned, [facility] XR ANKLE 3+ VW LEFT 2020-02-18 13:01:[address] [facility] XR FOOT 3+ VW LEFT 2020-02-18 13:01:[address] [facility] NOTICE OF PRIVACY PRACTICES 2020-02-18 12:22:14 Doctor Unassigned, [facility] CONSENT/REFUSAL FOR DIAGNOSI S AND TREATMENT 2020-02-18 12:21:57 Doctor Unassigned, [facility] CONSENT/REFUSAL FOR DIAGNOSI S AND TREATMENT 2020-02-18 12:21:52 Doctor Unassigned, [facility] Encounters Start Date/Time End Date/Time Encounter Type Admission Type Attending [facility] Care Facility Care Department Encounter ID Source 2021-07-10 13:39:07 Outpatient [facility] [id number] [facility] 2021-02-17 20:20:11 Outpatient LENNOX AGUAYO [facility] OPH [id number] [facility] 2021-02-15 02:16:56 Emergency [facility] [id number] [facility] 2023-07-08 16:01:00 2023-07-08 17:03:00 Emergency X EMILY VILLA [facility] ERT [id number] [facility] 2023-07-08 16:01:00 2023-07-08 17:03:00 Emergency Emily Villa G [facility] 1.2.840.114 350.1.13.10 4.2.7.2.686 [id number] [facility] 2021-12-29 13:10:58 2021-12-29 23:59:00 Outpatient R RADIOLOGY [facility] [id number] [facility] 2021-12-29 13:10:58 2021-12-29 23:59:00 Hospital Encounter Radiology [facility] 1.2.840.114 350.1.13.10 4.2.7.2.686 [id number] [facility] 2021-07-31 12:49:00 2021-07-31 15:15:00 Outpatient R OLIVIERLENNOX QUINONES [facility] OPH [id number] [facility] 2021-07-31 12:49:00 2021-07-31 15:15:00 Hospital Encounter Olivier Lennox Rodrigo [facility] 1.2.840.114 350.1.13.10 4.2.7.2.686 [id number] [facility] 2021-07-31 14:09:00 2021-07-31 14:45:00 Surgery Lennox Aguayo [facility] 1.2.840.114 350.1.13.10 4.2.7.2.686 [id number] [facility] 2021-07-31 00:00:00 2021-07-31 00:00:00 Orders Only Doctor Unassigned, [place] [facility] 1.2.840.114 350.1.13.10 4.2.7.2.686 [id number] [facility] 2021-07-29 00:00:00 2021-07-29 00:00:00 Orders Only Doctor Unassigned, [place] [facility] 1.2.840.114 350.1.13.10 4.2.7.2.686 [id number] [facility] 2021-07-27 15:22:00 2021-07-27 18:43:00 Emergency X SERENE VALDEZ [facility] ERT [id number] [facility] 2021-07-27 15:22:00 2021-07-27 18:43:00 Emergency Serene Valdez [facility] 1.2840.114 350.1.13.10 4.2.7.2.686 [id number] [facility] 2021-07-10 09:53:00 2021-07-10 13:00:00 Outpatient LENNOX HENDERSON [facility] OPH [id number] [facility] 2021-07-10 09:53:00 2021-07-10 13:00:00 Hospital Encounter Lennox Aguayo [facility] [place] 1.840.114 350.1.13.10 4.2.7.2.686 [id number] [facility] 2021-07-10 11:34:00 2021-07-10 12:09:00 Surgery Lennox Aguayo [facility] [place] 1.840.114 350.1.13.10 4.2.7.2.686 [id number] [facility] 2021-07-10 00:00:00 2021-07-10 00:00:00 Orders Only Doctor Unassigned, [place] [facility] 1.2.840.114 350.1.13.10 4.2.7.2.686 [id number] [facility] 2021-06-24 15:00:00 2021-06-24 15:00:00 Outpatient LENNOX HENDERSON [facility] [id number] [facility] 2021-06-19 15:30:00 2021-06-19 15:45:00 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, 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 Lennox Aguayo [facility] 1.2.840.114 350.1.13.10 4.2.7.2.686 [id number] [facility] 2021-06-19 15:30:00 2021-06-19 15:30:00 Outpatient LENNOX HENDERSON [facility] [id number] [facility] 2021-01-07 14:45:00 2021-01-07 14:45:00 Outpatient LENNOX HENDERSON [facility] [id number] [facility] 2021-01-02 15:22:33 2021-01-02 15:37:33 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, 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 [facility] 1.2.840.114 350.1.13.10 4.2.7.2.686 [id number] [facility] 2021-01-02 15:30:00 2021-01-02 15:30:00 Outpatient LENNOX HENDERSON [facility] [id number] [facility] 2021-01-02 00:00:00 2021-01-02 00:00:00 Orders Only Doctor Unassigned, [place] [facility] 1.2840.114 350.1.13.10 4.2.7.2.686 [id number] [id number] [facility] 2020-02-18 06:25:00 2020-02-18 07:52:00 Emergency [facility] 1.2.840.114 350.1.13.10 4.2.7.2.686 [id number] [facility] 2020-02-18 00:00:00 2020-02-18 00:00:00 Orders Only Doctor Unassigned, [place] [facility] 1.2.840.114 350.1.13.10 4.2.7.2.686 [id number] [facility] Results Test Description Test Time Test Comments Results Result [facility]26[facility] Test Item Value Reference Range Interpretation Comme nts LIPASE (test code = 7288357751) 130 U/L 0-220 Lab Interpretation (test cod e = 29996-1) Normal [facility] WITH ZNYZ5779-29-93 21:13:04* Test Item Value Reference Range Interpretation Comme nts WBC (test code = 6690-2) See_Comment H [Automated messa ge] The system which generated this result transmitted reference range: 4.30 - 11.10 10*3/?L. The reference range was not used to interpret this result as normal/abnormal. RBC (test code = 789-8) See_Comment [Automated messa ge] The system which generated this result transmitted reference range: 3.93 - 5.25 10*6/?L. The reference range was not used to interpret this result as normal/abnormal. HGB (test code = 718-7) 13.2 g/dL 11.6-15.0 HCT (test code = 4544-3) 41.0 % 35.7-45.2 MCV (test code = 787-2) 87.0 fL 80.6-95.5 MCH (test code = 785-6) 28.0 pg 25.9-32.8 MCHC (test code = 786-4) 32.2 g/dL 31.6-35.1 RDW-SD (test code = 49063-3) 41.5 fL 39.0-49.9 RDW-CV (test code = 788-0) 13.1 % 12.0-15.5 PLT (test code = 777-3) See_Comment H [Automated messa ge] The system which generated this result transmitted reference range: 166 - 358 10*3/?L. The reference range was not used to interpret this result as normal/abnormal. MPV (test code = 07431-4) 9.7 fL 9.5-12.9 NRBC/100 WBC (test code = 0987584051) See_Comment [Automated [employer] ssage] The system which generated this result transmitted reference range: 0.0 - 10.0 /100 WBCs. The reference range was not used to interpret this result as normal/abnormal. NRBC x10^3 (test code = 8993871692) <0.01 See_Comment [Automated messa ge] The system which generated this result transmitted reference range: 10*3/?L. The reference range was not used to interpret this result as normal/abnormal. GRAN MAT (NEUT) % (test code = 770-8) 67.2 % IMM GRAN % (test code = 9076389935) 0.30 % LYMPH % (test code = 736-9) 19.4 % MONO % (test code = 5905-5) 10.8 % EOS % (test code = 713-8) 1.7 % BASO % (test code = 706-2) 0.6 % GRAN MAT x10^3(ANC) (test code = 7156395690) 8.61 10*3/uL 1.88-7.09 H IMM GRAN x10^3 (test code = 3276218445) 0.04 10*3/uL 0.00-0.06 LYMPH x10^3 (test code = 731-0) 2.49 10*3/uL 1.32-3.29 MONO x10^3 (test code = 742-7) 1.38 10*3/uL 0.33-0.92 H EOS x10^3 (test code = 711-2) 0.22 10*3/uL 0.03-0.39 BASO x10^3 (test code = 704-7) 0.08 10*3/uL 0.01-0.07 H Lab Interpretation (test code = 99748-9) Abnormal [facility] Notes Date/Time Note Provider Source 2023-07-08 16:52:00 qt7xmHlUii2QI2ObXyPf j8U0aWtQPJseWx qLsNms/1akq9mCMA6Xg+zMlf818JCM2492 -03-21T16:52:00 Pt discharged with diagnosis of pelvic pain, encouraged hydration. Printed and verbal instructions reviewed with and given to pt. Pt. verbalized understanding of teaching and recommended follow-up. Denies questions or concerns at this time. Pt ambulatory at discharge. Appears in no apparent distress. No ataxia noted.Pt came to ER by mistakes, pt was scheduled to go to radiology at 1400 by PCP. 64396-4Phzgrmaiy department WkldOG7171-44-54M12:55:09Emergency department NoteTXT1.2.840.592611.1.13.104.2.7 .2.610447|[id number] for patient xhpf18335-5LpyiWOQYTWPWOLAVomgapac d C-CDA narrative [id number] M John RN[id number] 24JNXKRTTBRTDCNFEYZHMUFB5137-62-30 T16:55:091.2.840.622190.1.72.3.15| 1.2.840.026826.1.13.104.2.7.2.7278 [id number] Kia Harper John RN [facility] 2023-07-08 15:48:06 ITNLogOIcHBid9onUwf8 Ck63ukTt0EmVmh d1hsZQrTgR1eO0nLH20q6rXHPeX/cb98392023T15:48:06 Pt arrived ambulatory with c/o pain in pelvic area. Pt states " The pain started this morning. Im having increased frequence, feel like I have afever and nausea. I went to my family doc they said it is probably a stone. They sent something for pain and infection over to the pharmacy."Med Hx: lupus and kidney stonesInterpreter used for triage. ID # [id number] signed by Sara Ferrer RN at 07/08/2023 4:22 PM PRR07242-4Cjveqsfcb department Triage gwlmSD5417-85-32H83:22:30[facility] Triage noteTXT1.2.840.405350.1.13.104.2.7 .2.570437|[id number] for patient oaem83541-6Fgatttlww department NoteLNNARRATIVEFormatted C-CDA narrative [id number] Ferrer RNUT[id number] 21EFSEIHKSKXDCOQHWPSMGCW6278-90-68 T16:22:301.2.840.859503.1.72.3.15| 1.2.840.561336.1.13.104.2.7.2.7278 [id number] Sara Ferrer RN [facility]
[2023-08-12] MEDS ORDERED: CEFTRIAXONE 1000 MG/VIAL ONE (20:18)
[2023-08-12] MEDS ORDERED: WATER FOR INJ,STERILE 10 ML ONE (20:18)
[2023-08-12] MEDS ORDERED: NA CHLORIDE 0.9% 500 ML ONE (20:18)
[2023-08-12 20:50] LABS: Specific Gravity 1.013 (1.005-1.030); Sqamous Epithelial <5 /HPF (None Seen); Urine Bacteria <20 /HPF (<20); Urine Bilirubin NEGATIVE (Negative); Urine Blood 1+ (Negative); Urine Clarity Turbid (Clear); Urine Color Light-Yellow (Yellow); Urine Culture Reflex Order REFLEXED; Urine Glucose NEGATIVE (Negative); Urine Ketones NEGATIVE (Negative); Urine Microscopic Reflex YN ORDER UMIC; Urine Mucus Slight /HPF (None Seen); Urine Nitrite NEGATIVE (Negative); Urine Protein NEGATIVE (Negative); Urine RBC <5 /HPF (None Seen); Urine Urobilinogen Normal (Normal); Urine WBC 20-50 /HPF (<5); Urine pH 6.5 (5.0-7.0)
[2023-08-12 20:52] LABS: Absolute Basophils 0.1 K/uL (0-0.5); Absolute Eosinophils 0.2 K/uL (0-0.5); Absolute Lymphocytes (CBC) 2.8 K/uL (0.7-4.9); Absolute Monocytes 1.3 K/uL (0.1-1.3); Basophils % 1.2 % (0-1.3); Eosinophils % 1.7 % (0-4.4); Hematocrit 37.7 % (36.0-45.0); Hemoglobin 12.4 g/dL (12.0-15.0); Lymphocytes % 26.8 % (15.3-44.8); MCHC 32.8 g/dL (32.0-36.0); MCV 85.4 fL (80-100); MPV 7.9 fL (7.6-11.3); Monocytes % 12.2 % (3.3-12.3); Neutrophils % 58.1 % (41.7-73.7); Platelets 362 thou/uL (152-406); RBC Red Blood Cell Count 4.41 M/uL (3.86-4.86)
[2023-08-12 21:01] LABS: Albumin 3.7 g/dL (3.4-5.0); Albumin/Globulin Ratio 0.9 (1.1-1.8); Anion Gap 6.5 mEq/L (5.0-15.0); Bilirubin Total 0.4 mg/dL (0.2-1.0); Globulin 4.1 g/dL (2.3-3.5); Potassium 3.5 mEq/L (3.5-5.1); Protein, Total 7.8 g/dL (6.4-8.2)
[2023-08-12] MEDS ORDERED: NA CHLORIDE 0.9% 100 ML ONE (21:10)
[2023-08-12] MEDS ORDERED: CEFEPIME 1 GM/VIAL ONE (21:10)
--- NOTE | 2023-08-12 21:27 | ER ---
Nurse's Notes [facility] [place] [place] Name: Ivory Jordan Age: 67 yrs Sex: Female : 1955 Arrival Date: 08/12/2023 Time: 19:39 Bed 8 Private MD: Diagnosis: Dysuria;Systemic lupus erythematosus, unspecified;UTI/ Urinary tract infection, site not specified-ESBL Presentation: 08/11 20:00 Chief complaint: Patient states: Sent by lead recreation assistant for evaluation and treatment. nj1 Had positive urine culture. Has been admitted in the past for IV antibiotics for same problem in the past, last time was 2 years ago. Coronavirus screen: Vaccine status: Patient reports receiving the 2nd dose of the covid vaccine. Ebola Screen: Patient reports travel to Ebola-affected area in the 21 days before illness onset. Patient reports having traveled to: [place]. 20:00 Method Of Arrival: Ambulatory [facility] 20:00 Initial Sepsis Screen: Does the patient meet any 2 criteria? No. Patient's initial [facility] sepsis screen is negative. Does the patient have a suspected source of infection? No. Patient's initial sepsis screen is negative. Risk Assessment: Do you want to hurt yourself or someone else? Patient reports no desire to harm self or others. Onset of symptoms was July 2023. 20:00 Acuity: PILAR 3 nj1 Historical: - Allergies: 20:22 Codeine; nj1 - PMHx: 20:22 Diverticulitis; Kidney stones; Lupus erythematosus; nj1 - Immunization history:: Client reports receiving the 2nd dose of the Covid vaccine. - Infectious Disease History:: ESBL, . - Social history:: Smoking status: Patient denies any tobacco usage or history of. Screenin:24 [facility] ED Fall Risk Assessment (Adult) History of falling in the last 3 months, rv including since admission No falls in past 3 months (0 pts) Score/Fall Risk Level 0 - 2 = Low Risk Oriented to surroundings, Maintained a safe environment, Educated pt \T\ family on fall prevention, incl call for assistance when getting out of bed, Assessed \T\ reinforced patient's understanding of fall precautions. Abuse screen: Denies threats or abuse. Denies injuries from another. Nutritional screening: No deficits noted. Tuberculosis screening: No symptoms or risk factors identified. Assessment: 20:24 General: Appears comfortable, Behavior is calm, cooperative. Pain: Denies pain. Neuro: rv Level of Consciousness is awake, alert, obeys commands, Oriented to person, place, time, situation. Cardiovascular: Capillary refill < 3 seconds Patient's skin is warm and dry. Respiratory: Airway is patent Respiratory effort is even, unlabored. GI: No signs and/or symptoms were reported involving the gastrointestinal system. : Reports burning with urination, urgency, urinary frequency. Derm: Skin is intact. 21:18 Reassessment: Patient appears in no apparent distress at this time. Patient and/or tm6 family updated on plan of care and expected duration. Pain level reassessed. Patient is alert, oriented x 3, equal unlabored respirations, skin warm/dry/pink. Vital Signs: 20:00 BP 157 / 65; Pulse 64; Resp 16; Temp 97.2(TE); Pulse Ox 98% on R/A; Weight 74.84 kg; nj1 Height 5 ft. 6 in. ; 20:25 BP 157 / 65; Pulse 61; Resp 16; Temp 98; Pulse Ox 96% on R/A; rv 21:17 BP 165 / 71; Pulse 62; Pulse Ox 99% on R/A; Pain 0/10; tm6 08/12 00:43 BP 155 / 70; Pulse 61; Resp 15; Temp 98; Pulse Ox 100% on R/A; rv 08/11 20:00 Body Mass Index 26.63 (74.84 kg, 167.64 cm) nj1 21:17 Pain Scale: Adult 6 [place] Coma Score: 08/11 20:25 Eye Response: spontaneous(4). Motor Response: obeys commands(6). Verbal Response: rv oriented(5). Total: 15. 08/12 00:43 Eye Response: spontaneous(4). Motor Response: obeys commands(6). Verbal Response: rv oriented(5). Total: 15. ED Course: 08/11 19:40 Patient arrived in ED. jj6 20:07 Martin Larson MD is Attending Physician. [facility] 20:22 Triage completed. nj1 20:23 Arm band placed on. nj1 20:24 Timbo Lee RN is Primary Nurse. rv 20:24 Patient has correct armband on for positive identification. Client placed on continuous rv cardiac and pulse oximetry monitoring. NIBP monitoring applied. 20:24 No provider procedures requiring assistance completed. rv 20:37 Inserted saline lock: 22 gauge in right antecubital area, using aseptic technique. vk 21:18 Provided Education on: use of call wild. Door closed. Noise minimized. Warm blanket tm6 given. PO fluids given. 21:24 Aakash Russell is Hospitalizing Provider. [facility] 21:46 CT Stone Protocol In Process Unspecified. EDFL 08/12 00:44 Patient admitted, IV remains in place. rv Administered Medications: 08/11 20:37 Drug: NS 0.9% IV 500 ml IV at bolus once Route: IV; Rate: bolus; Site: right rv antecubital; 08/12 00:44 Follow up: IV Status: Completed infusion; IV Intake: 500ml rv 08/11 20:37 Drug: Rocephin IV 1 grams IV at per protocol once; Given slow IV push per pharmacy rv instructions Route: IV; Rate: per protocol; Site: right antecubital; 08/12 00:44 Follow up: Response: No adverse reaction; Marked relief of symptoms; IV Status: rv Completed infusion 08/11 21:17 Drug: Cefepime IVPB 1 grams IVPB at 200 ml/hr once over 30 mins; (mix in NS 100 mL) tm6 Route: IVPB; Rate: 200 ml/hr; Infused Over: 30 mins; Site: right antecubital; 08/12 00:44 Follow up: Response: No adverse reaction; Marked relief of symptoms; IV Status: rv Completed infusion Medication: 08/11 20:24 VIS not applicable for this client. rv Intake: 08/12 00:44 IV: 500ml; Total: 500ml. rv Outcome: 08/11 21:27 Decision to Hospitalize by Provider. [facility] 08/12 00:43 Admitted to Med/surg accompanied by tech, via wheelchair, room 228, with chart, Report rv called to faxed and received report by Olivia MONTANO Condition: good Instructed on the need for admit, 00:44 Patient left the ED. rv Signatures: Dispatcher [employer] EDFL Martin Larson MD MD cha Vicente, Ronaldo RN RN rv Marisabel Guyj6 Zhane Reyes RN RN nj1 Helen, Tawney, RN RN tm6 Vito, Mira vk
--- NOTE | 2023-08-12 21:27 | EDPHYS ---
Physician Documentation [facility] Name: Ivory Jordan Age: 67 yrs Sex: Female : 1955 Arrival Date: 08/12/2023 Time: 19:39 Bed 8 Private MD: ED Physician Martin Larson HPI: 08/11 21:20 This 67 yrs old Female presents to ER via Ambulatory with complaints of PT bulmaro SENT BY RHEUMOTOLGIST FOR POSITIVE ESBL RESULT ON URINE CULTURE, PT HAS H/O LUPUS. 21:20 The patient presents with urinary symptoms, dysuria, frequency, urgency. Onset: The bulmaro symptoms/episode began/occurred 14 day(s) ago. Modifying factors: The symptoms are alleviated by nothing, the symptoms are aggravated by urinating. Associated signs and symptoms: The patient has no apparent associated signs or symptoms. Severity of symptoms: At their worst the symptoms were mild, moderate, in the emergency department the symptoms are unchanged. The patient is not sexually active. The patient has experienced similar episodes in the past, several times. Historical: - Allergies: 20:22 Codeine; nj1 - PMHx: 20:22 Diverticulitis; Kidney stones; Lupus erythematosus; nj1 - Immunization history:: Client reports receiving the 2nd dose of the Covid vaccine. - Infectious Disease History:: ESBL, . - Social history:: Smoking status: Patient denies any tobacco usage or history of. ROS: 21:22 Constitutional: Negative for fever, chills, and weight loss, Eyes: Negative for injury, bulmaro pain, redness, and discharge, ENT: Negative for injury, pain, and discharge, Neck: Negative for injury, pain, and swelling, Cardiovascular: Negative for chest pain, palpitations, and edema, Respiratory: Negative for shortness of breath, cough, wheezing, and pleuritic chest pain, Back: Negative for injury and pain, MS/Extremity: Negative for injury and deformity, Skin: Negative for injury, rash, and discoloration, Neuro: Negative for headache, weakness, numbness, tingling, and seizure, Psych: Negative for depression, anxiety, suicide ideation, homicidal ideation, and hallucinations, Allergy/Immunology: Negative for hives, rash, and allergies, Endocrine: Negative for neck swelling, polydipsia, polyuria, polyphagia, and marked weight changes, Hematologic/Lymphatic: Negative for swollen nodes, abnormal bleeding, and unusual bruising, 21:22 Abdomen/GI: Positive for abdominal pain, 21:22 : Positive for urinary symptoms, flank pain, burning with urination, foul smelling urine, Exam: 21:22 Constitutional: This is a well developed, well nourished patient who is awake, alert, bulmaro and in no acute distress. Head/Face: Normocephalic, atraumatic. Eyes: Pupils equal round and reactive to light, extra-ocular motions intact. Lids and lashes normal. Conjunctiva and sclera are non-icteric and not injected. Cornea within normal limits. Periorbital areas with no swelling, redness, or edema. ENT: Nares patent. No nasal discharge, no septal abnormalities noted. Tympanic membranes are normal and external auditory canals are clear. Oropharynx with no redness, swelling, or masses, exudates, or evidence of obstruction, uvula midline. Mucous membranes moist. Neck: Trachea midline, no thyromegaly or masses palpated, and no cervical lymphadenopathy. Supple, full range of motion without nuchal rigidity, or vertebral point tenderness. No Meningismus. Chest/axilla: Normal chest wall appearance and motion. Nontender with no deformity. No lesions are appreciated. Cardiovascular: Regular rate and rhythm with a normal S1 and S2. No gallops, murmurs, or rubs. Normal PMI, no JVD. No pulse deficits. Respiratory: Lungs have equal breath sounds bilaterally, clear to auscultation and percussion. No rales, rhonchi or wheezes noted. No increased work of breathing, no retractions or nasal flaring. Abdomen/GI: Soft, non-tender, with normal bowel sounds. No distension or tympany. No guarding or rebound. No evidence of tenderness throughout. Back: No spinal tenderness. No costovertebral tenderness. Full range of motion. Female : Normal external genitalia. Skin: Warm, dry with normal turgor. Normal color with no rashes, no lesions, and no evidence of cellulitis. MS/ Extremity: Pulses equal, no cyanosis. Neurovascular intact. Full, normal range of motion. Neuro: Awake and alert, GCS 15, oriented to person, place, time, and situation. Cranial nerves II-XII grossly intact. Motor strength 5/5 in all extremities. Sensory grossly intact. Cerebellar exam normal. Normal gait. Psych: Awake, alert, with orientation to person, place and time. Behavior, mood, and affect are within normal limits. Vital Signs: 20:00 BP 157 / 65; Pulse 64; Resp 16; Temp 97.2(TE); Pulse Ox 98% on R/A; Weight 74.84 kg; nj1 Height 5 ft. 6 in. ; 20:25 BP 157 / 65; Pulse 61; Resp 16; Temp 98; Pulse Ox 96% on R/A; rv 21:17 BP 165 / 71; Pulse 62; Pulse Ox 99% on R/A; Pain 0/10; tm6 08/12 00:43 BP 155 / 70; Pulse 61; Resp 15; Temp 98; Pulse Ox 100% on R/A; rv 08/11 20:00 Body Mass Index 26.63 (74.84 kg, 167.64 cm) nj1 21:17 Pain Scale: Adult tm6 Felton Coma Score: 08/11 20:25 Eye Response: spontaneous(4). Motor Response: obeys commands(6). Verbal Response: rv oriented(5). Total: 15. 08/12 00:43 Eye Response: spontaneous(4). Motor Response: obeys commands(6). Verbal Response: rv oriented(5). Total: 15. MDM: 08/11 20:07 Patient medically screened. [facility] 08/11 20:12 Order name: CBC with Diff; Complete Time: 21:20 [facility] 08/11 20:12 Order name: Comprehensive Metabolic Panel; Complete Time: 21:20 [facility] 08/11 20:12 Order name: Urinalysis w/ reflexes; Complete Time: 21:20 [facility] 08/11 20:12 Order name: Urine Culture [facility] 08/11 21:23 Order name: CT Stone Protocol [facility] 08/11 23:00 Order name: CONS Physician Consult EDMS Administered Medications: 20:37 Drug: NS 0.9% IV 500 ml IV at bolus once Route: IV; Rate: bolus; Site: right rv antecubital; 08/12 00:44 Follow up: IV Status: Completed infusion; IV Intake: 500ml 08/11 20:37 Drug: Rocephin IV 1 grams IV at per protocol once; Given slow IV push per pharmacy rv instructions Route: IV; Rate: per protocol; Site: right antecubital; 08/12 00:44 Follow up: Response: No adverse reaction; Marked relief of symptoms; IV Status: rv Completed infusion 08/11 21:17 Drug: Cefepime IVPB 1 grams IVPB at 200 ml/hr once over 30 mins; (mix in NS 100 mL) tm6 Route: IVPB; Rate: 200 ml/hr; Infused Over: 30 mins; Site: right antecubital; 08/12 00:44 Follow up: Response: No adverse reaction; Marked relief of symptoms; IV Status: rv Completed infusion Disposition Summary: 08/12/23 21:27 Hospitalization Ordered Notes: Hospitalization Status: Observation bulmaro Provider: Aakash Russell cha Location: Telemetry/MedSurg (observation) bulmaro Condition: Stable bulmaro Problem: new bulmaro Symptoms: have improved bulmaro Bed/Room Type: Standard [facility] Room Assignment: 228(08/12/23 23:39) Diagnosis - Dysuria bulmaro - Systemic lupus erythematosus, unspecified bulmaro - UTI/ Urinary tract infection, site not specified - ESBL bulmaro Forms: - Medication Reconciliation Form bulmaro - SBAR form bulmaro - Leadership Thank You Letter bulmaro Signatures: Dispatcher [employer] EDMS Martin Larson MD MD cha Vicente, Ronaldo RN RN Catina Zazueta Zhane Ryees RN RN nj1 Bonnie Cervantes RN RN tm6 Corrections: (The following items were deleted from the chart) 08/11 21:24 21:24 Stone Protocol+CT.RAD.BRZ ordered. EDAR EDAR 23:39 21:27 bulmaro
--- NOTE | 2023-08-12 22:38 | RAD REPORT ---
EXAM DESCRIPTION: CT - Stone Protocol - 08/12/2023 9:44 pm CLINICAL HISTORY: KIDNEY STONES COMPARISON: Abdomen Pelvis W Contrast dated 02/10/2023; Abdomen Pelvis W Contrast dated 08/25/2018 ; CTSTONE PROTOCOL dated 01/14/2012; CT ABD PELVIS W CONTRAST dated 12/18/2011 TECHNIQUE: Thin cut axial CT imaging of the abdomen and pelvis was performed without IV contrast. Mu ltiplanar reformats were generated and reviewed. All CT scans are performed using dose optimization technique as appropriate and may include automated exposure control or mA/KV adjustment according to patient size. FINDINGS: No suspicious findings in the lung bases. The liver, spleen, adrenal glands, and pancreas show no suspicious findings. Gallbladder was surgical ly removed. Atrophic changes of the left kidney again seen. Lower pole parenchymal calcification and mild promine nce of the left renal pelvis. Lower pole calculi not exceeding 5 mm. Moderate right hydroureteronephr osis, stable. No other suspicious parenchymal findings within limits of noncontrast technique. No sohan dence of radiopaque calculi or hydroureteronephrosis. No dilated bowel loops or bowel wall thickening. Colonic diverticulosis. No free air, free fluid or i nflammatory stranding. No hernia, mass or bulky lymphadenopathy. The urinary bladder is decompressed limiting evaluation. No suspicious bony findings. IMPRESSION: No acute intra-abdominal process. Moderate right hydroureteronephrosis. Nonobstructing left lower renal pole calculi up to 5 mm. These findings are stable.
[2023-08-12] MEDS ORDERED: ONDANSETRON 4 MG/2 ML VIAL IV PRN (22:58)
--- NOTE | 2023-08-12 23:13 | P.HP ---
Certification for Inpatient Patient admitted to: Inpatient With expected LOS: >2 Midnights Practitioner: I am a practitioner with admitting privileges, knowledge of patient current condition, hospital course, and medical plan of care. Services: Services provided to patient in accordance with Admission requirements found in Title 42 Section 412.3 of the Code of Federal Regulations Patient History Date of Service: 08/12/23 Reason for admission: ESBL UTI History of Present Illness: 67-year-old woman with a history of SLE also referred by her dog groomer to the emergency department because her urine culture grew ESBL. Patient reports urinary symptoms including urgency and frequency of urination for about a weeks duration. Her urine culture was checked by rheumatology which came back growing ESBL, patient could not mention the organism identity. 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 Evaluation in the ED revealed mild hypercalcemia. Patient is hospitalized for further management. Allergies No Known Allergies Allergy (Unverified 09/15/11 23:36) - Past Medical/Surgical History -: SLE -: Kidney stones -: Diverticulitis -: Parathyroidectomy - Family History Mother -: Kidney disease - Social History Smoking Status: Former smoker Alcohol use: No CD- Drugs: No Place of Residence: Home Review of Systems Other: Patient denied any fever or chills, she denied any dysuria, she denied any nausea vomiting or diarrhea. She denied any abdominal pain. Except as documented, all other systems reviewed and negative. Physical Examination - Physical Exam General: Alert, In no apparent distress, Oriented x3 HEENT: Mucous membr. moist/pink, Sclerae nonicteric Neck: Supple, JVD not distended Respiratory: Clear to auscultation bilaterally, Normal air movement Cardiovascular: No edema, Regular rate/rhythm, Normal S1 S2 Gastrointestinal: Normal bowel sounds, Soft and benign, Non-distended, No tenderness Musculoskeletal: No swelling, No tenderness Integumentary: No rashes, No cyanosis Neurological: Normal speech, Normal strength at 5/5 x4 extr Lymphatics: No axilla or inguinal lymphadenopathy - Studies Laboratory Data (last 24 hrs) 08/12/23 08/12/23 20:27 20:27 WBC 10.40 Hgb 12.4 Hct 37.7 Plt Count 362 Sodium 138 Potassium 3.5 BUN 21 H Creatinine 0.90 Glucose 91 Total Bilirubin 0.4 AST 13 L ALT 20 Alkaline Phosphatase 61 Assessment and Plan - Problems (Diagnosis) (1) Infection due to extended spectrum beta lactamase (ESBL) producing bacteria Current Visit: Yes Status: Acute (2) SLE (systemic lupus erythematosus related syndrome) Current Visit: Yes Status: Acute - Plan Admit patient to the medical floor. Repeat urine culture Start IV meropenem Infectious disease consult Patient will need a PICC line for outpatient IV antibiotics Continue home medications for SLE-hydroxychloroquine. - Advance Directives Does patient have a Living Will: No Does patient have a Durable POA for Healthcare: No
[2023-08-13 01:06] VITALS: BMI 26.6
[2023-08-13 03:37] LABS: Absolute Basophils 0.1 K/uL (0-0.5); Absolute Eosinophils 0.2 K/uL (0-0.5); Absolute Lymphocytes (CBC) 2.5 K/uL (0.7-4.9); Absolute Monocytes 1.1 K/uL (0.1-1.3); Absolute Neutrophil 5.5 K/uL (1.8-8.0); Basophils % 1.5 % (0-1.3); Eosinophils % 1.9 % (0-4.4); Hematocrit 33.3 % (36.0-45.0); Hemoglobin 11.1 g/dL (12.0-15.0); Lymphocytes % 26.3 % (15.3-44.8); MCH 28.6 pg (27.0-35.0); MCHC 33.3 g/dL (32.0-36.0); MCV 85.9 fL (80-100); MPV 8.5 fL (7.6-11.3); Monocytes % 11.9 % (3.3-12.3); Neutrophils % 58.4 % (41.7-73.7); Nucleated Red Blood Cells % 0.1 % (0-0); Platelets 319 thou/uL (152-406); RBC Red Blood Cell Count 3.87 M/uL (3.86-4.86); Red Cell Distribution Width 13.7 % (12.1-15.2)
[2023-08-13 03:57] LABS: Anion Gap 3.8 mEq/L (5.0-15.0); Potassium 3.8 mEq/L (3.5-5.1)
--- NOTE | 2023-08-13 07:03 | P.PN ---
Subjective Date of Service: 08/13/23 Chief Complaint: ESBL UTI Subjective: No new changes, Improving <Nandini Almaguer - Last Filed: 08/13/23 19:38> Date of Service: 08/23/23 <Michael Hanson - Last Filed: 08/23/23 16:23> Review of Systems 10-point ROS is otherwise unremarkable Genitourinary: Frequency <WmlewisNandini - Last Filed: 08/13/23 19:38> Physical Examination - Vital Signs Temperature: 97.4 F Blood Pressure: 129/62 Pulse: 54 Respirations: 18 Pulse Ox (%): 98 - Physical Exam General: Alert, In no apparent distress, Oriented x3 HEENT: Atraumatic, Normocephalic Respiratory: Other (Nonlabored respirations on room air) Cardiovascular: No edema, Regular rate/rhythm Gastrointestinal: Normal bowel sounds, Soft and benign Integumentary: No rashes Neurological: Normal speech - Studies Laboratory Data - reviewed Medications List Reviewed: Yes <TrippNandnii - Last Filed: 08/13/23 19:38> Assessment And Plan - Plan Problem list Acute Urinary Tract Infection, Recurrent Nonobstructing left renal calculi systemic lupus erythematosus (SLE) Acute Urinary Tract Infection Nonobstructing left renal calculi - referred to ED by crane service technician due to urine culture growing E.coli ESBL - CT abdomen pelvis 08/11: " No acute intra-abdominal process. Moderate right hydroureteronephrosis. Nonobstructing left lower renal pole calculi up to 5 mm. These findings are stable." - afebrile no leukocytosis -Continue meropenem/ertapenem for 14 days (08/12-08/26) -PICC line order placed -Recommend follow-up with urology as outpatient systemic lupus erythematosus (SLE) -Continue home Plaquenil VTE: lovenox Dipso: home with home health Code: shoe lacer Spent Managing PTS Care (In Minutes): 45 <Nandini Almaguer - Last Filed: 08/13/23 19:38> - Plan Patient seen and examined on rounds this morning with MOBILITY ENGINEER Tripp. I performed a substantial part of the MDM during this patient's care today as noted above in the plan of care. I agree with plan of care as noted above with the following additions / corrections: UTI, with recent outpatient culture growing ESBL e coli continue merrem, plan for picc / ertapenem at home, pending cultures <Michael Hanson - Last Filed: 08/23/23 16:23>
[2023-08-13] MEDS: POTASSIUM CL SA 10 MEQ TAB PO ONE (09:21)
[2023-08-13] MEDS: ENOXAPARIN 40 MG/0.4 ML SQ SCH (09:21)
[2023-08-13] MEDS: HYDROXYCHLOROQUINE 200MG TAB PO SCH (09:21)
[2023-08-13] MEDS: Meropenem 1,000 MG in NA CHLORIDE 0.9% 100 ML IV SCH ×2 (09:21→17:20)
[2023-08-13] MEDS: Mupirocin NASAL 2 APPL/1 GM TUBE NAS SCH (12:00)
--- NOTE | 2023-08-13 22:25 | RAD REPORT ---
EXAM DESCRIPTION: RAD - Chest Single View - 08/13/2023 10:19 pm CLINICAL HISTORY: Device placement PICC line placement IMPRESSION: PICC line with its tip in the superior vena cava
[2023-08-14 03:11] LABS: Hematocrit 36.2 % (36.0-45.0); Hemoglobin 11.9 g/dL (12.0-15.0); MCH 28.3 pg (27.0-35.0); MCHC 32.8 g/dL (32.0-36.0); MCV 86.2 fL (80-100); Platelets 339 thou/uL (152-406); RBC Red Blood Cell Count 4.19 M/uL (3.86-4.86); Red Cell Distribution Width 13.9 % (12.1-15.2)
[2023-08-14 03:24] LABS: Anion Gap 7.3 mEq/L (5.0-15.0); Potassium 4.3 mEq/L (3.5-5.1)
[2023-08-14 07:03] LABS: Magnesium 1.9 mg/dL (1.6-2.4); Phosphorus 2.2 mg/dL (2.5-4.9)
--- NOTE | 2023-08-14 08:26 | P.PN ---
Date of Service: 08/14/23 Subjective: Improving Patient ambulating in room, in no apparent distress . Denies any new/worsening complaints at this time. No acute events overnight. IV antibiotic delivery at home expected Tuesday 08/15 Plan of care discussed with patient and daughter. Physical Examination General: Alert, In no apparent distress, Oriented x3 HEENT: Atraumatic, Normocephalic. Sclera nonicteric. Respiratory: Clear to auscultation bilaterally. Nonlabored respirations on room air. Cardiovascular: No edema, Regular rate/rhythm Gastrointestinal: Normal bowel sounds, Soft and benign Integumentary: No rashes Neurological: Normal speech Vitals Reviewed Laboratory Data reviewed Assessment And Plan Problem list Acute Urinary Tract Infection, Recurrent Nonobstructing left renal calculi systemic lupus erythematosus (SLE) Acute Urinary Tract Infection Nonobstructing left renal calculi - CT abdomen pelvis 08/11: " No acute intra-abdominal process. Moderate right hydroureteronephrosis. Nonobstructing left lower renal pole calculi up to 5 mm. These findings are stable." - referred to ED by rotary shear operator due to urine culture growing E.coli ESBL -Urine culture 08/11: 4+ gram-negative rods -Awaiting final sensitivity and speciation results - afebrile. no leukocytosis -Continue meropenem/ertapenem for 14 days (08/12-08/26) -PICC line placed 08/12 -Recommend follow-up with urology as outpatient for recurrent urinary tract infection Systemic lupus erythematosus (SLE) -Continue home Plaquenil VTE: lovenox Dipso: home with home health ~24-48h Code: full
[2023-08-14] MEDS: ACETAMINOPHEN 325 MG TABLET PO PRN (11:40)
[2023-08-15] MEDS ORDERED: POTASS/SODIUM PHOSPHATE 1 PKT POWD.PACK PO SCH ×2 (06:00→07:00)
[2023-08-15] MEDS: POTASS/SODIUM PHOSPHATE 1 PKT POWD.PACK PO SCH (06:32)
--- NOTE | 2023-08-15 07:07 | P.PN ---
Date of Service: 08/15/23 Subjective: Patient sitting up in bed. Family at bedside. Pt denies any new or worsening complaints. Requests return to work form at discharge. No acute events overnight. Pending discharge home with home health. Physical Examination General: Alert, oriented. In no apparent distress. Pleasant. HEENT: normocephalic, atraumatic. sclera nonicteric. Respiratory: clear to auscultation bilaterally. normal respirations on room air. Cardiovascular: Regular rate. No edema. Gastrointestinal: Normoactive bowel sounds. abdomen soft, nontender, nondistended Integumentary: skin warm and dry. no rashes. Neurological: normal speech, normal affect, normal tone Vitals Reviewed Assessment And Plan Problem list Acute Urinary Tract Infection, Recurrent Nonobstructing left renal calculi systemic lupus erythematosus (SLE) Acute Urinary Tract Infection Nonobstructing left renal calculi - CT abdomen pelvis 08/11: " No acute intra-abdominal process. Moderate right hydroureteronephrosis. Nonobstructing left lower renal pole calculi up to 5 mm. These findings are stable." - referred to ED by bid manager due to urine culture growing ESBL organism.. -Urine culture 08/11: Eschericha coli ESBL - afebrile. no leukocytosis -Continue meropenem/ertapenem for 14 days (08/12-08/26) - meropenem switched to Ertapenem 08/14 -PICC line placed 08/12 -Recommend follow-up with urology as outpatient for recurrent urinary tract infection - pending discharge home with home health to complete 2 weeks of IV ertapanem. Systemic lupus erythematosus (SLE) -Continue home Plaquenil VTE: lovenox Dipso: home with home health ~24hr Code: full
[2023-08-15] MEDS ORDERED: ERTAPENEM SODIUM 1 GM VIAL IVPB SCH (08:00)
[2023-08-15] MEDS: ERTAPENEM NA 1 GM in NA CHLORIDE 0.9% 100 ML IVPB SCH (08:41)
[2023-08-16 01:32] VITALS: O2SAT 97
[2023-08-16 05:29] LABS: Anion Gap 3.1 mEq/L (5.0-15.0); Magnesium 1.8 mg/dL (1.6-2.4); Phosphorus 2.5 mg/dL (2.5-4.9); Potassium 4.1 mEq/L (3.5-5.1)
[2023-08-16 08:44] VITALS: BP 121/65; TEMP 96.9
--- NOTE | 2023-08-16 09:11 | P.DS ---
Admission Date: 08/12/23 Discharge Date: 08/17/23 Disposition: CT HOME/HOME HEALTH CARE Discharge Condition: GOOD Reason for Admission: ESBL UTI Brief History of Present Illness: 67-year-old woman with a history of SLE also referred by her travel rn or to the emergency department because her urine culture grew ESBL. Patient reports urinary symptoms including urgency and frequency of urination for about a weeks duration. Her urine culture was checked by rheumatology which came back growing ESBL, patient could not mention the organism identity. 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 Evaluation in the ED revealed mild hypercalcemia. Patient is hospitalized for further management. Hospital Course: Problem list Acute Urinary Tract Infection, Recurrent Nonobstructing left renal calculi systemic lupus erythematosus (SLE) Patient was referred to the ED by her travel rn or due to urine culture resulting with E.coli ESBL for IV antibiotics. She reported urinary frequency, no dysuria. CT abdomen pelvis showing moderate right hydroureteronephrosis and Nonobstructing left lower renal pole calculi up to 5 mm. Patient confirmed history of kidney stones. She was started on meropenem, PICC line placed 08/12 to complete 14 days of antibiotic therapy. Afebrile, no leukocytosis. Deemed stable for discharge home with home health to complete remainder of antibiotic course on Ertapenem 1g IV q24h (end date: 08/26). Home health agency, [facility] has been confirmed. Flush PICC with 10mL NS before and after IV abx infusion Antibiotic end date: 08/27/23 New Medications - Ertapenem 1g IV once daily x 14 days Continue home medications as previously prescribed. Follow up: - follow up with your primary care physician in 1 week. Call to schedule appointment. - Recommend following up with Urologist Physical Examination General: Alert, oriented. In no apparent distress. Pleasant. HEENT: normocephalic, atraumatic. sclera nonicteric. Respiratory: clear to auscultation bilaterally. normal respirations on room air. Cardiovascular: Regular rate. No edema. Gastrointestinal: Normoactive bowel sounds. abdomen soft, nontender, nondistended Integumentary: skin warm and dry. no rashes. Neurological: normal speech, normal affect, normal tone Vital Signs/Physical Exam: Temp Pulse Resp BP Pulse Ox 96.9 F 65 14 121/65 100 08/16/23 08:00 08/16/23 08:00 08/16/23 08:00 08/16/23 08:00 08/16/23 08:00 Laboratory Data at Discharge: WBC 10.30 thou/uL (4.3-10.9) 08/14/23 03:00 Hgb 11.9 g/dL (12.0-15.0) L 08/14/23 03:00 Hct 36.2 % (36.0-45.0) 08/14/23 03:00 Plt Count 339 thou/uL (152-406) 08/14/23 03:00 Sodium 136 mEq/L (136-145) 08/16/23 04:49 Potassium 4.1 mEq/L (3.5-5.1) 08/16/23 04:49 BUN 18 mg/dL (7-18) 08/16/23 04:49 Creatinine 0.66 mg/dL (0.55-1.02) 08/16/23 04:49 Glucose 93 mg/dL (74-106) 08/16/23 04:49 Phosphorus 2.5 mg/dL (2.5-4.9) 08/16/23 04:49 Magnesium 1.8 mg/dL (1.6-2.4) 08/16/23 04:49 Total Bilirubin 0.4 mg/dL (0.2-1.0) 08/12/23 20:27 AST 13 U/L (15-37) L 08/12/23 20:27 ALT 20 U/L (13-56) 08/12/23 20:27 Alkaline Phosphatase 61 U/L (45-117) 08/12/23 20:27 Home Medications: Hydroxychloroquine Sulfate 200 mg PO BID 08/13/23 Meloxicam 15 mg PO DAILY 08/13/23 Omeprazole 20 mg PO DAILY 08/13/23 Physician Discharge Instructions: Patient was referred to the ED by her travel rn or due to urine culture resulting with E.coli ESBL for IV antibiotics. She reported urinary frequency, no dysuria. CT abdomen pelvis showing moderate right hydroureteronephrosis and Nonobstructing left lower renal pole calculi up to 5 mm. Patient confirmed history of kidney stones. She was started on meropenem, PICC line placed 08/12 to complete 14 days of antibiotic therapy. Afebrile, no leukocytosis. Deemed stable for discharge home with home health to complete remainder of antibiotic course on Ertapenem 1g IV q24h (end date: 08/26). Home health agency, [facility] has been confirmed. Flush PICC with 10mL NS before and after IV abx infusion Antibiotic end date: 08/27/23 New Medications - Ertapenem 1g IV once daily x 14 days Continue home medications as previously prescribed. Follow up: - follow up with your primary care physician in 1 week. Call to schedule appointment. - Recommend following up with Urologist Diet: Regular Activity: Ad michael Followup: John Grande MD [Primary Care Provider] -
== END 2023-08-16 09:45 | disposition home health service (06) | DRG 690 ==
LOC: ER 19:39 → ERHOLD 22:57 → 2ND 08-13 00:10
PROVIDERS: ADMIT Internal Medicine; ATTEND Hospitalist
PROC: 02HV33Z Insertion of Infusion Device into Superior Vena Cava, Percutaneous Approach (ICD-10-PCS; principal; 2023-08-13)
DX: N39.0 Urinary tract infection, site not specified (principal); Z16.12 Extended spectrum beta lactamase (ESBL) resistance; M32.9 Systemic lupus erythematosus, unspecified; E83.52 Hypercalcemia; N20.0 Calculus of kidney; B96.20 Unspecified Escherichia coli [E. coli] as the cause of diseases classified elsewhere; Z88.5 Allergy status to narcotic agent; Z87.891 Personal history of nicotine dependence
CPT/HCPCS: 36415; 71045; 74176; 76377; 80048; 80053; 81001; 83735; 84100; 85025; 85027; 87077; 87086; 87088; 87186; 96365; 96366; 99285; J0692; J0696; J1335; J1650; J2185; J7040